=== PATIENT | female | born 1995 | race African-American/Black ===

== ENCOUNTER 2018-05-26 09:30 | Emergency (ER) | payer BC, OTHER ==
[2018-05-26 10:33] LABS: MONOTEST Negative (NEG)
== END 2018-05-26 10:46 | disposition home or self-care (01) ==
LOC: FTE 09:30
DX: J02.0 Streptococcal pharyngitis (principal); J45.909 Unspecified asthma, uncomplicated
CPT/HCPCS: 36415; 86308; 87880; 99283

== ENCOUNTER 2019-03-12 18:49 | Emergency (ER) | payer BC | END 2019-03-12 19:23 | disposition home or self-care (01) | LOC: FTE 18:49 → E/R 19:23 | DX: R10.13 Epigastric pain (principal); J45.909 Unspecified asthma, uncomplicated | CPT/HCPCS: 99283; Z7502 ==